=== PATIENT | female | born 1955 | race Caucasian/White ===

== ENCOUNTER → 2018-08-31 | Outpatient (REF) | payer OTHER ==
[~2018-08-31] MED LIST: /PANT40TA; ADVIL; ASPI325T; BABY81CH; TUMS500C
== END ==
LOC: M LAB REF 16:19
PROVIDERS: ATTEND Nurse Practitioner Family
DX: L03.116 Cellulitis of left lower limb (principal)

== ENCOUNTER → 2018-11-03 | Outpatient (REF) | payer OTHER ==
[~2018-11-03] MED LIST changes: -/PANT40TA; +PROT1TAB2
== END ==
LOC: M LAB REF 16:23
PROVIDERS: ATTEND Internal Medicine
DX: R10.9 Unspecified abdominal pain (principal)

== ENCOUNTER → 2019-01-03 | Outpatient (REF) | payer OTHER ==
[2019-01-03 14:04] LABS: HEPATITIS C VIRUS ABY INDEX 0.1 INDEX (<0.8); RUBELLA IgG QUALITATIVE IMMUNE (IMMUNE)
== END ==
LOC: M LAB REF 12:36
PROVIDERS: ATTEND Internal Medicine
DX: Z02.1 Encounter for pre-employment examination (principal)

== ENCOUNTER → 2019-04-06 | Outpatient (REF) | payer OTHER ==
[2019-04-06 12:26] LABS: C REACTIVE PROTEIN QUANTITATIV 0.31 MG/DL (0.00-0.30)
[2019-04-07 13:29] LABS: PERCENT SATURATION 46.5 % (13.2-45.0)
== END ==
LOC: M LAB REF 11:53
PROVIDERS: ATTEND Internal Medicine
DX: R79.82 Elevated C-reactive protein (CRP) (principal); R53.83 Other fatigue; D64.9 Anemia, unspecified

== ENCOUNTER → 2020-03-29 | Outpatient (REF) | payer OTHER ==
[2020-03-29 13:39] LABS: C REACTIVE PROTEIN QUANTITATIV 0.61 MG/DL (0.00-0.30)
== END ==
LOC: M LAB REF 12:19
PROVIDERS: ATTEND Internal Medicine
DX: R79.82 Elevated C-reactive protein (CRP) (principal); R53.83 Other fatigue

== ENCOUNTER → 2020-08-07 | Outpatient (CLI) | payer OTHER | LOC: M LABSMTC 13:40 | PROVIDERS: ATTEND Family Medicine | DX: Z20.828 Contact with and (suspected) exposure to other viral communicable diseases (principal) | CPT/HCPCS: C9803; U0003 ==

== ENCOUNTER → 2022-07-09 | Outpatient (CLI) | payer MEDICARE | LOC: M PLAIMG 14:51 | PROVIDERS: ATTEND Internal Medicine | DX: R10.9 Unspecified abdominal pain (principal) ==

== ENCOUNTER → 2022-07-28 | Outpatient (CLI) | payer MEDICARE ==
[~2022-07-28] MED LIST changes: +GASTROGRAFIN SOLUTION 30ML As Ordered ONE; +ISOVUE-370 76% 100ML VIAL As Ordered ONE
== END ==
LOC: M RAD 13:29
PROVIDERS: ATTEND Internal Medicine
DX: R10.9 Unspecified abdominal pain (principal); R63.4 Abnormal weight loss
CPT/HCPCS: 74178; Q9963; Q9967

== ENCOUNTER → 2023-03-04 | Outpatient (REF) | payer MEDICARE ==
[~2023-03-04] MED LIST changes: -GASTROGRAFIN SOLUTION 30ML As Ordered ONE; -ISOVUE-370 76% 100ML VIAL As Ordered ONE
== END ==
LOC: M SFHCDERM 17:28
PROVIDERS: ATTEND Physician Assistant
DX: C44.319 Basal cell carcinoma of skin of other parts of face (principal)

== ENCOUNTER 2023-04-26 06:45 | Emergency (ER) | payer MEDICARE ==
[~2023-04-26] VITALS: Ht 157.5 cm; Wt 94.9 kg
[2023-04-26 07:22] LABS: BASO % 0.9 % (0.0-1.0); EOS # 0.1 10^3/uL (0.0-0.5); HEMATOCRIT 38.1 % (36.0-47.0); HEMOGLOBIN 12.8 g/dl (12.0-15.5); LYMPH # 1.4 10^3/uL (1.5-5.0); LYMPH % 32.6 % (24.0-44.0); MEAN CORPUSCULAR HEMOGLOBIN 33.1 pg (27.0-33.0); MEAN CORPUSCULAR HGB CONC 33.6 g/dl (32.0-36.5); MEAN CORPUSCULAR VOLUME 98.4 fl (80.0-96.0); MONO # 0.4 10^3/uL (0.0-0.8); MONO % 8.7 % (2.0-8.0); NEUTROPHILS # 2.3 10^3/uL (1.5-8.5); NEUTROPHILS % 54.6 % (36.0-66.0); PLATELET COUNT, AUTOMATED 169 10^3/uL (150-450); RED BLOOD COUNT 3.87 10^6/uL (4.00-5.40); WHITE BLOOD COUNT 4.3 10^3/uL (4.0-10.0)
[2023-04-26] MEDS ORDERED: METOPROLOL TART 25 MG TABLET PO ONE ×2 (07:30→09:00)
[2023-04-26] MEDS ORDERED: PROA1AER2 (07:32)
[2023-04-26] MEDS ORDERED: ACET500T15 PO (07:32)
[2023-04-26 07:34] LABS: LIPASE 64 U/L (12-53)
[2023-04-26 07:36] LABS: ALBUMIN 3.9 G/DL (3.2-5.2); ALKALINE PHOSPHATASE 101 U/L (46-116); ALT/SGPT 30 U/L (7.0-40); AST/SGOT 22 U/L (<34); BILIRUBIN,DIRECT 0.2 MG/DL (<0.4); BILIRUBIN,TOTAL 0.6 MG/DL (0.3-1.2); BLOOD UREA NITROGEN 16 MG/DL (9-23); CALCIUM LEVEL 9.2 MG/DL (8.3-10.6); CARBON DIOXIDE LEVEL 25 MMOL/L (20-31); CHLORIDE LEVEL 110 MMOL/L (98-107); CREATININE FOR GFR 0.67 MG/DL (0.55-1.30); GLOMERULAR FILTRATION RATE > 60.0 (>45); GLUCOSE, FASTING 100 MG/DL (74-106); SODIUM LEVEL 146 MMOL/L (136-145); TOTAL PROTEIN 6.6 G/DL (5.7-8.2)
[2023-04-26 07:38] LABS: FREE T4 1.02 NG/DL (0.89-1.76); THYROID STIMULATING HORMONE 1.631 uIU/ML (0.55-4.78)
[2023-04-26] MEDS: METOPROLOL 5 MG/5 ML VIAL IV SCH ×3 (07:38→07:57)
[2023-04-26 07:48] LABS: MAGNESIUM LEVEL 1.9 MG/DL (1.8-2.4)
[2023-04-26 09:09] VITALS: BP 114/93
[2023-04-26] MEDS ORDERED: ELIQ5TAB PO (09:16)
[2023-04-26] MEDS ORDERED: NS 500 ML IV ONE (10:50)
[2023-04-26] MEDS ORDERED: METO25TA4 PO (11:18)
[2023-04-26] MEDS ORDERED: APIXABAN 5 MG TAB (ELIQUIS) PO ONE (11:20)
[2023-04-26 11:30] VITALS: BP 117/75; O2SAT 99
[2023-04-26 11:45] VITALS: TEMP 97.7
== END 2023-04-26 11:49 | disposition home or self-care (01) ==
LOC: EDBD 06:45 → M ED 06:45
DX: I48.91 Unspecified atrial fibrillation (principal); Z85.828 Personal history of other malignant neoplasm of skin; Z82.49 Family history of ischemic heart disease and other diseases of the circulatory system

== ENCOUNTER → 2023-05-27 | Outpatient (CLI) | payer MEDICARE ==
[~2023-05-27] MED LIST changes: +ACET500T15 PO; +ELIQ5TAB PO; +METO25TA4 PO; +PROA1AER2
== END ==
LOC: M CARPUL 13:07
PROVIDERS: ATTEND Internal Medicine
DX: I48.0 Paroxysmal atrial fibrillation (principal)

== ENCOUNTER → 2023-07-21 | Outpatient (REF) | payer MEDICARE ==
[2023-07-21 19:50] LABS: FERRITIN 81.5 NG/ML (7.3-270.7)
[2023-07-21 19:52] LABS: FOLATE 12.8 NG/ML (>5.4)
== END ==
LOC: M LAB REF 17:41
PROVIDERS: ATTEND Internal Medicine
DX: D64.9 Anemia, unspecified (principal)

== ENCOUNTER → 2023-08-19 | Outpatient (REF) | payer MEDICARE | LOC: M LAB REF 12:14 | PROVIDERS: ATTEND Internal Medicine | DX: D64.9 Anemia, unspecified (principal) ==

== ENCOUNTER → 2023-10-29 | Outpatient (REF) | payer MEDICARE ==
[2023-10-29 13:37] LABS: PERCENT SATURATION 32.7 % (13.2-45.0)
[2023-10-29 13:40] LABS: FERRITIN 101.1 NG/ML (7.3-270.7)
== END ==
LOC: M LAB REF 12:46
PROVIDERS: ATTEND Internal Medicine
DX: D64.9 Anemia, unspecified (principal)

== ENCOUNTER → 2023-12-11 | Outpatient (REF) | payer MEDICARE ==
[2023-12-14 13:41] LABS: PERCENT SATURATION 28.3 % (13.2-45.0)
[2023-12-14 13:43] LABS: FERRITIN 140.1 NG/ML (7.3-270.7)
== END ==
LOC: M LAB REF 12:13
PROVIDERS: ATTEND Internal Medicine
DX: D64.9 Anemia, unspecified (principal)

== ENCOUNTER → 2023-12-24 | Outpatient (REF) | payer MEDICARE ==
[2023-12-24 18:14] LABS: HEMATOCRIT 28.4 % (36.0-47.0); HEMOGLOBIN 9.4 g/dl (12.0-15.5); MEAN CORPUSCULAR HEMOGLOBIN 33.6 pg (27.0-33.0); MEAN CORPUSCULAR HGB CONC 33.1 g/dl (32.0-36.5); MEAN CORPUSCULAR VOLUME 101.4 fl (80.0-96.0); PLATELET COUNT, AUTOMATED 183 10^3/uL (150-450); WHITE BLOOD COUNT 5.6 10^3/uL (4.0-10.0)
[2023-12-24 19:47] LABS: BASOPHILS 2 % (0-1); EOSINOPHILS 4 % (0-3); LYMPHOCYTES 34 % (16-44); MONOCYTES 4 % (0-5); NEUTROPHILS 56 % (28-66)
[2023-12-24 19:48] LABS: PLATELET ESTIMATE NORMAL (NORMAL)
== END ==
LOC: M LAB REF 17:43
PROVIDERS: ATTEND Internal Medicine
DX: R71.8 Other abnormality of red blood cells (principal)

== ENCOUNTER → 2023-12-25 | Outpatient (REF) | payer MEDICARE ==
[2023-12-25 12:30] LABS: APPEARANCE, URINE CLEAR (CLEAR); BACTERIA, URINE AUTO NEGATIVE (NEGATIVE); BILIRUBIN, URINE AUTO NEGATIVE (NEGATIVE); BLOOD, URINE BLOOD NEGATIVE (NEGATIVE); COLOR, URINE YELLOW (YELLOW); GLUCOSE, URINE (UA) AUTO NEGATIVE (NEGATIVE); KETONE, URINE AUTO NEGATIVE (NEGATIVE); LEUKOCYTE ESTERASE, URINE AUTO TRACE (NEGATIVE); NITRITE, URINE AUTO NEGATIVE (NEGATIVE); PROTEIN, URINE AUTO NEGATIVE (NEGATIVE); RBC, URINE AUTO 0 /HPF (0-3); SQUAMOUS EPITHELIAL CELL UR AU 0 /HPF (0-6); UROBILINOGEN, URINE AUTO 0.2 mg/dL (0.0-2.0); WBC, URINE AUTO 4 /HPF (0-3)
[2023-12-28 11:37] LABS: PROTEIN CREATININE RATIO 162 mg/g creat (24-184); T PROTEIN CREATININE RATIO 0.162 (0.024-0.184); UPEP CREATININE 68 mg/dL (20-275); UPEP TOTAL PROTEIN 11 mg/dL (5-24)
== END ==
LOC: M LAB REF 11:54
PROVIDERS: ATTEND Internal Medicine
DX: N17.8 Other acute kidney failure (principal); R10.9 Unspecified abdominal pain

== ENCOUNTER → 2023-12-30 | Outpatient (REF) | payer MEDICARE ==
[2024-01-02 01:08] LABS: T P ELECTROPHORESIS SO 6.3 g/dL (6.1-8.1)
== END ==
LOC: M LAB REF 16:24
PROVIDERS: ATTEND Internal Medicine
DX: N17.8 Other acute kidney failure (principal)

== ENCOUNTER → 2024-01-14 | Outpatient (CLI) | payer MEDICARE | LOC: M RAD 15:29 | PROVIDERS: ATTEND Internal Medicine | DX: N18.9 Chronic kidney disease, unspecified (principal); M79.605 Pain in left leg; R22.42 Localized swelling, mass and lump, left lower limb ==

== ENCOUNTER → 2024-02-02 | Outpatient (REF) | payer MEDICARE ==
[2024-02-03 13:31] LABS: IRON (FE) 66 UG/DL (50-170); PERCENT SATURATION 26.9 % (13.2-45.0); TOTAL IRON BINDING CAPACITY 245 UG/DL (250-425)
[2024-02-03 13:33] LABS: FOLATE > 24.0 NG/ML (>5.4)
[2024-02-03 13:34] LABS: VITAMIN B12 LEVEL 1524 PG/ML (211-911)
== END ==
LOC: M LAB REF 12:42
PROVIDERS: ATTEND Internal Medicine
DX: D64.9 Anemia, unspecified (principal)

== ENCOUNTER → 2024-02-11 | Outpatient (REF) | payer MEDICARE | LOC: M LAB REF 16:40 | PROVIDERS: ATTEND Internal Medicine Nephrology | DX: N39.0 Urinary tract infection, site not specified (principal) ==

== ENCOUNTER → 2024-04-08 | Outpatient (CLI) | payer MEDICARE ==
[~2024-04-08] MED LIST changes: +ASCO500C3 PO; +AZEL1SPR3 NARES; +ECOT81TA5 PO; +EQL50TAB2 PO; +FERR324T2; +NOXI1TAB PO; +SENN-186 PO; +TOPR25TA PO; +TUMS500C PO; +VITAMIN B PO; +tumeric PO
== END ==
LOC: M RAD 13:11
PROVIDERS: ATTEND Internal Medicine
DX: D36.7 Benign neoplasm of other specified sites (principal)

== ENCOUNTER → 2024-04-13 | Outpatient (REF) | payer MEDICARE | LOC: M LAB REF 16:17 | PROVIDERS: ATTEND Internal Medicine Hematology & Oncology | DX: D64.9 Anemia, unspecified (principal) ==

== ENCOUNTER → 2024-05-24 | Outpatient (REF) | payer MEDICARE | LOC: M LAB REF 16:38 | PROVIDERS: ATTEND Internal Medicine | DX: R10.9 Unspecified abdominal pain (principal) ==

== ENCOUNTER → 2024-08-05 | Outpatient (REF) | payer MEDICARE, OTHER ==
[2024-08-05 15:53] LABS: C REACTIVE PROTEIN QUANTITATIV < 0.50 MG/DL (<1.0)
[2024-08-05 16:35] LABS: CARCINOEMBRYONIC ANTIGEN < 2.0 NG/ML (<2.5)
[2024-08-09 10:53] LABS: ANA PATTERN Nuclear, Homogeneous (NEGATIVE); ANA SCREEN, IFA POSITIVE (NEGATIVE); ANA TITER 1:40 titer (<1:40)
[2024-08-10 13:17] LABS: SOLUBLE TRANSFERRIN RECEPTOR 1.07 mg/L (0.76-1.76)
== END ==
LOC: M LAB REF 12:50
PROVIDERS: ATTEND Internal Medicine
DX: D64.9 Anemia, unspecified (principal); C44.319 Basal cell carcinoma of skin of other parts of face

== ENCOUNTER → 2024-08-31 | Outpatient (CLI) | payer MEDICARE, OTHER | LOC: M WHC 10:51 | PROVIDERS: ATTEND Internal Medicine Nephrology | DX: N13.39 Other hydronephrosis (principal) ==

== ENCOUNTER → 2024-11-09 | Outpatient (REF) | payer MEDICARE, OTHER ==
[2024-11-11 22:18] LABS: SSA SJOGRENS A <1.0 NEG AI (<1.0 NEG); SSB SJOGRENS B <1.0 NEG AI (<1.0 NEG)
== END ==
LOC: M LAB REF 12:28
PROVIDERS: ATTEND Internal Medicine
DX: D64.9 Anemia, unspecified (principal); H04.123 Dry eye syndrome of bilateral lacrimal glands

== ENCOUNTER 2025-03-13 12:20 | Day surgery (SDC) | payer MEDICARE, OTHER ==
[~2025-03-13] VITALS: Ht 157.5 cm; Wt 88.0 kg
[~2025-03-13 12:20] MED LIST changes: +B-1100TA2 PO; +B-12100011 SL; -EQL50TAB2 PO; -FERR324T2; +FERR324T2 PO; +L-LY500T14 PO; +VITA1TAB82 PO
[2025-03-13 14:45] VITALS: TEMP 98.2
[2025-03-13 15:05] VITALS: BP 107/55; O2SAT 100
== END 2025-03-13 15:17 | disposition home or self-care (01) ==
LOC: M OPP 12:20
PROVIDERS: ATTEND Internal Medicine Gastroenterology
DX: K64.0 First degree hemorrhoids (principal); R19.7 Diarrhea, unspecified; D50.9 Iron deficiency anemia, unspecified; K22.89 Other specified disease of esophagus; K44.9 Diaphragmatic hernia without obstruction or gangrene; Z88.1 Allergy status to other antibiotic agents; Z88.2 Allergy status to sulfonamides; Z79.82 Long term (current) use of aspirin; Z79.899 Other long term (current) drug therapy; J45.909 Unspecified asthma, uncomplicated; I48.91 Unspecified atrial fibrillation
CPT/HCPCS: 43239; 45380; 88305; J3010

== ENCOUNTER → 2025-04-10 | Outpatient (CLI) | payer MEDICARE, OTHER | LOC: M PLAIMG 12:21 | DX: R07.81 Pleurodynia (principal) ==